=== PATIENT | male | born 1950 | race Caucasian/White ===

== ENCOUNTER 2024-11-07 13:26 | Day surgery (SDC) | payer MEDICARE, OTHER, SELFPAY ==
[2024-11-01 11:24] VITALS: BMI 25.8
--- NOTE | 2024-11-04 18:05 | P.HP_ITS ---
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 Patient did have an attempted colonoscopy on 08/26/2024 (Emely Lynn MD in [facility]). The preparation was deemed to be inadequate. The examination is deemed medically necessary for screening/surveillance colonoscopy. The patient has been seen, interviewed and examined prior to the procedure by both myself and the anesthesia provider. [facility] Disclaimer: The information contained in this section may have been updated after the patient was seen, as this information can be updated by other users. Medical History HLD (hyperlipidemia) HTN (hypertension) Obstructive sleep apnea Surgical History History of tonsillectomy History of hernia repair Family History Other CLL (chronic lymphocytic leukemia) Diabetes Kidney stones Lymphoma Prostate cancer Social History (Updated 11/07/24 @ 13:59 by Nomran Green CRNA) Smoking Status: Never smoker alcohol intake: current substance use type: denies use current occupational status: employed Travel in the last 8 weeks?: None Have you lived/traveled outside US in past 30 days?: No Contact w/someone who lives/traveled outside US past 30 days?: No Exposure to someone with infectious disease in past 14 days?: No Do you have a fever (greater than 100.4 F or 38 C)?: No Have you tested positive for COVID-19?: No Exposed to someone with COVID-19 in past 14 days?: No Do you have a sore throat?: No Do you have a cough?: No Do you have any weakness?: No Do you have any diarrhea?: No Are you experiencing any unusual bleeding?: No Do you have any muscle aches/pain?: No Do you have any abdominal pain?: No Are you experiencing loss of taste or smell?: No Review of Systems Review of Systems Review of systems (narrative): Negative *Cardiovascular Comments: Negative *Gastrointestinal Comments: Negative *Genitourinary Comments: Negative *Musculoskeletal Comments: Negative *Neurologic Comments: Negative Meds Home Medications and Allergies Home Medications ?Medication ?Instructions ?Recorded ?Confirmed ?Type atorvastatin 40 mg tablet 40 mg PO DAILY 11/01/2410/17 History semaglutide 2 mg/dose (8 mg/3 mL) 2 mg SQ WEEKLY 11/0111/07/24 History subcutaneous pen injector (Ozempic) valsartan 160 mg capsule 160 mg PO DAILY 11/01/24 History indapamide 1.25 mg tablet 0.625 mg PO DAILY 11/07/24 0 11/07/24 History New Prescriptions to Start Prescriptions: Allergies Allergy/AdvReac Type Severity Reaction Status Date / Time No Known Allergies Allergy Verified 11/07/24 13:44 Exam Data for Last 24 hours I & O for Last 24 hours: Intake & Output 11/01/24 11/02/24 11/03/24 11/04/24 23:59 23:59 23:59 23:59 Weight 180 lb *Routine HEENT Exam Head: Present normocephalic Eye: Present EOMI and PERRL ENT: Present mucous membranes moist *Routine Neck Exam Neck: Present supple *Routine Respiratory Exam Respiratory: Present CTA bilaterally *Routine Cardiovascular Exam Cardiovascular: Present RRR *Routine Abdominal Exam Abdominal: Present soft and normoactive bowel sounds; Absent tenderness *Routine Rectal Exam Rectal:: deferred *Routine Genitalia Exam Genitalia:: deferred *Routine Extremities Exam Extremities: Absent cyanosis, clubbing or edema *Routine Skin Exam Skin: Present warm; Absent rash *Routine Neurological Exam Neurological: Present alert and oriented X3 Assessment and Plan *Assessment and plan (1) Personal history of adenomatous and serrated colon polyps: Status: Acute Category: Medical Code(s): Z86.0101 - Personal history of adenomatous and serrated colon polyps (2) Positive colorectal cancer screening using Cologuard test: Status: Acute Category: Medical Code(s): R19.5 - Other fecal abnormalities (3) Screening for colon cancer: Status: Acute Category: Medical Code(s): Z12.11 - Encounter for screening for malignant neoplasm of colon Plan A/P: 1. Positive Cologuard with prior history/personal history of adenomatous colon polyps is the preprocedural diagnosis. The patient will be anesthetized/sedated using MAC sedation. The patient has been seen and examined. Cardiac and lung assessment prior to the examination is stable. Proceed with planned screening/surveillance colonoscopy.
[2024-11-07] MEDS: LACTATED RINGERS 1000ML 1,000 ML 50 ML IV (13:43)
[2024-11-07 13:47] VITALS: BP 132/85; PULSE 92; RESP 18; TEMP 36.5; O2SAT 98
--- NOTE | 2024-11-07 13:58 | EXP.ANES.CKL ---
[facility] Disclaimer: The information contained in this section may have been updated after the patient was seen, as this information can be updated by other users. Medical History HLD (hyperlipidemia) HTN (hypertension) Obstructive sleep apnea Surgical History History of tonsillectomy History of hernia repair Family History Other CLL (chronic lymphocytic leukemia) Diabetes Kidney stones Lymphoma Prostate cancer Social History Smoking Status: Never smoker alcohol intake: current substance use type: denies use current occupational status: employed Travel in the last 8 weeks?: None [facility] Anesthesia Checklist Patient Identification Patient Identification: Arm Band and Verbal (Name & ) Structural Data Admitted From: Home Planned Operative Procedure/s: colonoscopy Consent for Planned Operative Procedure(s) Verified: Yes Verified Documents: Surgical Consent NPO Status Verified Time NPO: 00:00 Chart Verification Results Verified: None Additional verifications Anesthesia Reactions: No Airway Assessment Mallampati Score:: Class II C-Spine Mobility Assessed: Yes TMJ Mobility Assessed: Yes Dentition: Good Dentition Neurological Assessment Level of Consciousness: Awake, Alert and Appropriate Hx Seizures: No Numbness or tingling in extremities: No Anesthesia Plan Anesthesia Risk discussed: Yes Anesthesia Plan: Verified ASA Class: II Anesthesia Type: MAC
--- NOTE | 2024-11-07 14:12 | P.PCN_ITS ---
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 Patient did have an attempted colonoscopy on 08/26/2024 (Emely Lynn MD in [facility]). The preparation was deemed to be inadequate and the right colon and cecum were not seen. The patient did have a colonoscopy with ma 8 to 10 years ago at which time small/diminutive adenomatous polyps were removed. He reports no abdominal pain, weight loss, change in his bowel habits or rectal bleeding. He reports no family history of colon cancer. The examination is deemed medically necessary for screening/surveillance colonoscopy. Procedure: Prior to the procedure, a history and physical exam was performed, and patient's medications and allergies were reviewed. The risks, benefits and alternatives of the sedation and procedure were discussed with the patient. All questions were answered and informed consent was obtained. The patient was brought to the procedure room. Patient identification and proposed procedure were verified by the physician and the nurse. The patient was placed in a left lateral decubitus position and the scope was passed under direct vision. Throughout the procedure, the patient's blood pressure, pulse, and oxygen saturations were monitored continuously. The colonoscopy was accomplished without difficulty. The patient tolerated the procedure well. Findings: On digital rectal examination, there was normal rectal tone and there were no external hemorrhoids. The prostate was 2-3+, smooth, soft, symmetric without nodules. The scope was then inserted through the anal canal to the rectum and advanced to 30 cm. There was abundant solid and liquid brown stool impairing any clear visualization of the colonic mucosa. The preparation was inadequate and the procedure was aborted. Impression: 1. Inadequate bowel preparation Plan: Given the positive Cologuard and inadequate visualization of the right colon, I do feel that colonoscopy is warranted. I would recommend 2-day bowel preparation with use of Linzess (4 capsules up 290 mcg) the day before the examination.
[2024-11-07 14:22] VITALS: BP 127/71; PULSE 86; RESP 16; TEMP 36.1; O2SAT 99
[2024-11-07 14:32] VITALS: BP 153/83; PULSE 83; RESP 16; O2SAT 98
[2024-11-07 14:42] VITALS: BP 134/66; PULSE 81; RESP 16; O2SAT 98
[2024-11-07 14:52] VITALS: BP 128/84; PULSE 84; RESP 16; O2SAT 97
== END 2024-11-07 14:52 | disposition home or self-care (01) ==
PROVIDERS: Visit Provider Internal Medicine Gastroenterology
PROC: 0DJD8ZZ Inspection of Lower Intestinal Tract, Via Natural or Artificial Opening Endoscopic (ICD-10-PCS; CPT 45378; principal; 2024-11-07 15:00)
DX: Z12.11 Encounter for screening for malignant neoplasm of colon (principal); Z86.0101 Personal history of adenomatous and serrated colon polyps; R19.5 Other fecal abnormalities; Z53.8 Procedure and treatment not carried out for other reasons; E78.5 Hyperlipidemia, unspecified; I10 Essential (primary) hypertension; G47.33 Obstructive sleep apnea (adult) (pediatric); Z80.7 Family history of other malignant neoplasms of lymphoid, hematopoietic and related tissues; Z80.42 Family history of malignant neoplasm of prostate; Z79.899 Other long term (current) drug therapy; Z79.84 Long term (current) use of oral hypoglycemic drugs; Z79.85 Long-term (current) use of injectable non-insulin antidiabetic drugs
CPT/HCPCS: G0105; J2003; J2704; J7120

== ENCOUNTER 2024-11-28 13:31 | Day surgery (SDC) | payer MEDICARE, OTHER, SELFPAY ==
--- NOTE | 2024-11-23 13:07 | EXP.HP ---
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 Patient did have an attempted colonoscopy on 08/26/2024 (Emely Lynn MD in [facility]). The preparation was deemed to be inadequate and the right colon and cecum were not seen. The patient did have a colonoscopy with sc 8 to 10 years ago at which time small/diminutive adenomatous polyps were removed. He reports no abdominal pain, weight loss, change in his bowel habits or rectal bleeding. He reports no family history of colon cancer. The examination is deemed medically necessary for screening/surveillance colonoscopy. [facility] Disclaimer: The information contained in this section may have been updated after the patient was seen, as this information can be updated by other users. Medical History HLD (hyperlipidemia) HTN (hypertension) Obstructive sleep apnea Surgical History History of tonsillectomy History of hernia repair Family History Other CLL (chronic lymphocytic leukemia) Diabetes Kidney stones Lymphoma Prostate cancer Social History (Updated 11/28/24 @ 13:48 by Julia Walls RN) Smoking Status: Never smoker alcohol intake: current substance use type: denies use current occupational status: employed Travel in the last 8 weeks?: None Have you lived/traveled outside US in past 30 days?: No Contact w/someone who lives/traveled outside US past 30 days?: No Exposure to someone with infectious disease in past 14 days?: No Do you have a fever (greater than 100.4 F or 38 C)?: No Have you tested positive for COVID-19?: No Exposed to someone with COVID-19 in past 14 days?: No Do you have a sore throat?: No Do you have a cough?: No Do you have any weakness?: No Do you have any diarrhea?: No Are you experiencing any unusual bleeding?: No Do you have any muscle aches/pain?: No Do you have any abdominal pain?: No Are you experiencing loss of taste or smell?: No Review of Systems Review of Systems Review of systems (narrative): Negative *Cardiovascular Comments: Negative *Gastrointestinal Comments: Negative *Genitourinary Comments: Negative *Musculoskeletal Comments: Negative *Neurologic Comments: Negative Meds Home Medications and Allergies Home Medications ?Medication ?Instructions ?Recorded ?Confirmed ?Type atorvastatin 40 mg tablet 40 mg PO DAILY 11/01/24 11/28/24 History semaglutide 2 mg/dose (8 mg/3 mL) 2 mg SQ WEEKLY 11/01/24 11/28/24 History subcutaneous pen injector (Ozempic) valsartan 160 mg capsule 160 mg PO DAILY 11/01/24 11/28/24 History indapamide 1.25 mg tablet 0.625 mg PO DAILY 11/07/24 11/28/24 History plecanatide 3 mg tablet (Trulance) 3 mg PO DAILY #30 tabs 11/07/24 11/28/24 Rx New Prescriptions to Start Prescriptions: Allergies Allergy/AdvReac Type Severity Reaction Status Date / Time No Known Allergies Allergy Verified 11/28/24 13:44 Exam *Routine HEENT Exam Head: Present normocephalic Eye: Present EOMI and PERRL ENT: Present mucous membranes moist *Routine Neck Exam Neck: Present supple *Routine Respiratory Exam Respiratory: Present CTA bilaterally *Routine Cardiovascular Exam Cardiovascular: Present RRR *Routine Abdominal Exam Abdominal: Present soft and normoactive bowel sounds; Absent tenderness *Routine Rectal Exam Rectal:: deferred *Routine Genitalia Exam Genitalia:: deferred *Routine Extremities Exam Extremities: Absent cyanosis, clubbing or edema *Routine Skin Exam Skin: Present warm; Absent rash *Routine Neurological Exam Neurological: Present alert and oriented X3 Assessment and Plan *Assessment and plan (1) Positive colorectal cancer screening using Cologuard test: Status: Acute Category: Medical Code(s): R19.5 - Other fecal abnormalities (2) Personal history of adenomatous and serrated colon polyps: Status: Acute Category: Medical Code(s): Z86.0101 - Personal history of adenomatous and serrated colon polyps (3) Screening for colon cancer: Status: Acute Category: Medical Code(s): Z12.11 - Encounter for screening for malignant neoplasm of colon Plan A/P: 1. Positive Cologuard with personal history of prior adenomatous colon polyps is the preprocedural diagnosis. The patient will be anesthetized/sedated using MAC sedation. The patient has been seen and examined. Cardiac and lung assessment prior to the examination is stable. Proceed with planned screening/surveillance colonoscopy.
--- NOTE | 2024-11-28 07:11 | P.PCN_ITS ---
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 The patient did have a colonoscopy in 2003 and had a diminutive tubular adenoma removed. He had a repeat colonoscopy in 2007 and had 2 diminutive tubular adenomas removed. His last colonoscopy in 2015 revealed 2 polyps (hyperplastic polyps x 2) which were removed. The patient did have an attempted colonoscopy on 08/26/2024 (Emely Lynn MD in [facility]). The preparation was deemed to be inadequate and the right colon and cecum were not seen. The patient also had an attempted colonoscopy with me on 11/07/2024 and was not adequately prepped. He reports no abdominal pain, weight loss, change in his bowel habits or rectal bleeding. He reports no family history of colon cancer. The examination is deemed medically necessary for screening/surveillance colonoscopy. Procedure: Prior to the procedure, a history and physical exam was performed, and patient's medications and allergies were reviewed. The risks, benefits and alternatives of the sedation and procedure were discussed with the patient. All questions were answered and informed consent was obtained. The patient was brought to the procedure room. Patient identification and proposed procedure were verified by the physician and the nurse. The patient was placed in a left lateral decubitus position and the scope was passed under direct vision. Throughout the procedure, the patient's blood pressure, pulse, and oxygen saturations were monitored continuously. The colonoscopy was accomplished without difficulty. The patient tolerated the procedure well. Findings: On digital rectal examination there was normal rectal tone. There were no external hemorrhoids. The prostate was 2-3+, smooth, soft, symmetric without nodules. The colonoscope was introduced through the anal canal to the rectum and advanced to the cecum. The ileocecal valve and appendiceal orifice were identified. The scope was advanced a short distance into the ileum which appeared grossly normal. The scope was then withdrawn into the colon. There were 4 colonic polyps (cecum x 2 (2 and 3 mm) and ascending x 2 (4 and 5 mm)). All of the polyps were removed via cold snare polypectomy (Exacto snare). The remaining cecum, ascending and transverse colon and mucosa were grossly normal. There were scattered diverticuli throughout the descending and sigmoid colon (LEFT colon). The rectum itself was normal. Upon retroflexion within the rectum there were grade 2 internal hemorrhoids. The preparation was excellent throughout with [place] Preparation Score of 9. The cecal time was 15 minutes. Impression: 1. Diminutive colonic polyps x 4 2. Left-sided diverticulosis 3. Grade 2 internal hemorrhoids Plan: I will follow-up the polyp histology and discuss the findings with the patient and family.
[2024-11-28 13:47] VITALS: BP 145/87; PULSE 72; RESP 16; TEMP 36.5; O2SAT 100; BMI 25.1
[2024-11-28] MEDS: LACTATED RINGERS 1000ML 1,000 ML 50 ML IV (13:58)
[2024-11-28 14:04] LABS: POC Glucose,Bedside 82 gm/dL (70-110)
[2024-11-28 14:34] VITALS: BP 111/72; PULSE 86; RESP 16; TEMP 36.1; O2SAT 96
[2024-11-28 14:44] VITALS: BP 112/74; PULSE 94; RESP 16; O2SAT 98
[2024-11-28 14:54] VITALS: BP 108/76; PULSE 92; RESP 16; O2SAT 87
[2024-11-28 14:56] VITALS: BP 127/78; PULSE 87; RESP 16; O2SAT 99
== END 2024-11-28 15:02 | disposition home or self-care (01) ==
PROVIDERS: Visit Provider Internal Medicine Gastroenterology
PROC: 0DJD8ZZ Inspection of Lower Intestinal Tract, Via Natural or Artificial Opening Endoscopic (ICD-10-PCS; CPT 45378; principal; 2024-11-28 14:30)
DX: Z12.11 Encounter for screening for malignant neoplasm of colon (principal); R19.5 Other fecal abnormalities; D12.2 Benign neoplasm of ascending colon; K57.30 Diverticulosis of large intestine without perforation or abscess without bleeding; K64.1 Second degree hemorrhoids; Z86.0101 Personal history of adenomatous and serrated colon polyps; Z86.0102 Personal history of hyperplastic colon polyps; I10 Essential (primary) hypertension; E78.5 Hyperlipidemia, unspecified; G47.33 Obstructive sleep apnea (adult) (pediatric); Z79.899 Other long term (current) drug therapy; Z79.85 Long-term (current) use of injectable non-insulin antidiabetic drugs
CPT/HCPCS: 45385; 82962; 88300; 88305; J2003; J2704; J7120